=== PATIENT | male | born 1985 | race Caucasian/White ===

== ENCOUNTER → 2017-11-03 | Outpatient (CLI) | payer OTHER ==
[~2017-11-03] MED LIST: ALBUTEROL SULFAT8 MG; ALPRAZOLAM0.5 M1 PO; AMITRIPTYLINE25 MG PO; CARAFATE1 GM PO; CYCLOBENZAPRINE10 M1 PO; CYCLOBENZAPRINE10 MG PO; DEXTROAMPHETAMI10 M1; ETODOLAC400 MG PO; FLUOXETINE20 MG PO; INDERAL 10MG10 MG PO; KLONOPIN 1MG1 MG PO; METOCLOPRAMIDE10 M1 PO; NEURONTIN800 MG/TAB PO; NICOTINE; NORCO 325 MG-51 TAB PO; NORCO 325 MG-7.1 TAB PO; OMEPRAZOLE20 MG PO; PEPCID 20MG TAB20 MG PO; PHENERGAN 25 TA25 MG PO; PHENERGAN25 MG RC; PHENYTOIN100 MG PO; PRAZOSIN HCL2 MG PO; PRIL40; QUETIAPINE FUM200 MG PO; SEROQUEL 200MG200 MG PO; SUMATRIPTA6 MG/0.51 SC; TOPAMAX 100MG100 M1; TRAMADOL50 MG PO; ULTRAM50 MG PO
== END ==
LOC: COL.RAD 13:30
DX: M25.511 Pain in right shoulder (principal); S43.491A Other sprain of right shoulder joint, initial encounter; M25.811 Other specified joint disorders, right shoulder
CPT/HCPCS: A9585; Q9967

== ENCOUNTER 2019-03-07 18:56 | Emergency (ER) | payer OTHER ==
[~2019-03-07] VITALS: Ht 182.9 cm; Wt 86.4 kg
[2019-03-07 19:01] VITALS: BP 136/78; TEMP 98.4
[2019-03-07] MEDS ORDERED: NORCO 325 MG-51 TAB PO (19:31)
[2019-03-07 19:52] VITALS: PULSE 140
== END 2019-03-07 20:16 | disposition home or self-care (01) ==
LOC: COL.ER 18:56
DX: M25.511 Pain in right shoulder (principal); G89.29 Other chronic pain; F41.9 Anxiety disorder, unspecified; F43.10 Post-traumatic stress disorder, unspecified; F17.210 Nicotine dependence, cigarettes, uncomplicated; Z88.6 Allergy status to analgesic agent

== ENCOUNTER 2019-04-03 20:37 | Emergency (ER) | payer OTHER ==
[~2019-04-03] VITALS: Ht 182.9 cm; Wt 88.6 kg
[~2019-04-03 20:37] MED LIST changes: +MINIPRESS2 MG PO; -PRAZOSIN HCL2 MG PO
[2019-04-03 21:12] VITALS: TEMP 98.4
[2019-04-04] MEDS ORDERED: FLEXERIL 1010 MG/TAB PO (00:03)
[2019-04-04 00:31] VITALS: BP 130/67; PULSE 80
[2019-04-04] MEDS ORDERED: REMERON30 MG PO (02:54)
[2019-04-04] MEDS ORDERED: ADDERALL10 MG PO (02:57)
[2019-04-04] MEDS ORDERED: CHANTIX START M1 TAB PO (02:58)
== END 2019-04-04 00:33 | disposition home or self-care (01) ==
LOC: COL.ER 20:37
DX: M25.511 Pain in right shoulder (principal); F17.210 Nicotine dependence, cigarettes, uncomplicated; Z88.1 Allergy status to other antibiotic agents; Z88.8 Allergy status to other drugs, medicaments and biological substances

== ENCOUNTER 2019-04-04 02:38 | Emergency (ER) | payer OTHER ==
[~2019-04-04] VITALS: Ht 182.9 cm; Wt 88.6 kg
[~2019-04-04 02:38] MED LIST changes: +FLEXERIL 1010 MG/TAB PO
[2019-04-04 02:48] VITALS: TEMP 97.5
[2019-04-04] MEDS ORDERED: REMERON30 MG PO (02:54)
[2019-04-04] MEDS ORDERED: ADDERALL10 MG PO (02:57)
[2019-04-04] MEDS ORDERED: CHANTIX START M1 TAB PO (02:58)
[2019-04-04 04:29] LABS: HEMATOCRIT 40.8 % (42.0-52.0); HEMOGLOBIN 13.6 g/dl (13.5-18.0); MEAN CELL VOLUME 87 fl (80.0-100.0); MEAN CORPUSCULAR HEMOGLOBIN 29 pg (27.0-31.0); MEAN CORPUSCULAR HGB CONC 33 g/dl (33.0-37.0); PLATELET COUNT 193 K/mm3 (130-400); REDCELL DISTRIBUTION WIDTH-CV 13.1 % (11.5-14.5)
[2019-04-04 04:42] LABS: ALANINE AMINOTRANSFERASE 21 U/L (21-72); ALKALINE PHOSPHATASE 63 U/L (50-136); ANION GAP 7 mmol/L (7-16); AST,SGOT 23 U/L (15-37); BILIRUBIN,TOTAL 0.2 mg/dL (0.0-1.0); BLOOD UREA NITROGEN 24 mg/dL (9-20); CARBON DIOXIDE 24 mmol/L (22-30); CHLORIDE 111 mmol/L (98-107); CREATININE, serum 0.98 (0.66-1.25); GLUCOSE 96 mg/dL (74-106); POTASSIUM 3.9 mmol/L (3.4-5.0); SODIUM 142 mmol/L (137-145); TOTAL PROTEIN 6.7 gm/dL (6.4-8.2)
[2019-04-04 04:43] LABS: ACETAMINOPHEN < 10 ug/mL (10-30); ALCOHOL(ethanol),MEDICAL < 10 mg/dL; SALICYLATE < 1.0 mg/dL
[2019-04-04 04:52] LABS: TROPONIN-I < 0.012 ng/mL (0.000-0.035)
[2019-04-04 05:16] LABS: BAND 2 % (0-10); EOSINOPHIL 5 % (0-4); LYMPHOCYTE 60 % (20.0-51.0); NEUTROPHILS 29 % (42.0-75.2); PLATELET ESTIMATE NORMAL (NORMAL)
[2019-04-04 07:00] VITALS: BP 105/75; PULSE 64
== END 2019-04-04 07:25 | disposition home or self-care (01) ==
LOC: COL.ER 02:38
PROVIDERS: Emergency Medicine
DX: M25.511 Pain in right shoulder (principal); R40.0 Somnolence; F43.10 Post-traumatic stress disorder, unspecified; F17.210 Nicotine dependence, cigarettes, uncomplicated

== ENCOUNTER → 2019-05-02 | Outpatient (CLI) | payer OTHER ==
[~2019-05-02] MED LIST changes: +ADDERALL10 MG PO; +CHANTIX START M1 TAB PO; +REMERON30 MG PO
== END ==
LOC: COL.RAD 09:21
DX: S43.491A Other sprain of right shoulder joint, initial encounter (principal)
CPT/HCPCS: A9585; Q9967

== ENCOUNTER 2019-07-05 01:57 | Emergency (ER) | payer MEDICARE ==
[~2019-07-05] VITALS: Ht 182.9 cm; Wt 93.2 kg
[2019-07-05] MEDS ORDERED: IMITREX 25MG TA25 MG PO (02:04)
[2019-07-05 02:05] VITALS: BP 123/80; TEMP 98.4
[2019-07-05] MEDS ORDERED: ULTRAM 50MG TAB50 MG PO (02:05)
[2019-07-05 02:22] LABS: COLLECTION METHOD CLEAN CATCH
[2019-07-05 02:30] LABS: MUCOUS Present /lpf; PH 5 (5-8); SQUAMOUS EPITHELIAL 0-2 /hpf; URINE APPEARANCE Hazy; URINE BACTERIA Rare /hpf; URINE BILIRUBIN Negative (NEGATIVE); URINE BLOOD Negative (NEGATIVE); URINE COLOR Yellow; URINE GLUCOSE Negative (NEGATIVE); URINE KETONE Negative (NEGATIVE); URINE LEUKOCYTE ESTERASE Negative (NEGATIVE); URINE NITRATE Negative (NEGATIVE); URINE PROTEIN(semi-quant) Negative (NEGATIVE); URINE RBC 0-2 /hpf
[2019-07-05 02:34] LABS: TRICYCLIC ANTIDEPRESS URINE NEGATIVE
[2019-07-05 02:58] LABS: HEMATOCRIT 43.8 % (42.0-52.0); HEMOGLOBIN 14.5 g/dl (13.5-18.0); MEAN CELL VOLUME 86 fl (80.0-100.0); MEAN CORPUSCULAR HEMOGLOBIN 28 pg (27.0-31.0); MEAN CORPUSCULAR HGB CONC 33 g/dl (33.0-37.0); MEAN PLATELET VOLUME 10.3 fl (7.4-10.4); PLATELET COUNT 181 K/mm3 (130-400); RED BLOOD COUNT 5.12 M/mm3 (4.20-5.60); REDCELL DISTRIBUTION WIDTH-CV 12.9 % (11.5-14.5)
[2019-07-05 03:07] LABS: ALANINE AMINOTRANSFERASE 30 U/L (21-72); ALBUMIN 4.2 gm/dL (3.5-5.0); ALKALINE PHOSPHATASE 64 U/L (50-136); ANION GAP 9 mmol/L (7-16); AST,SGOT 19 U/L (15-37); BILIRUBIN,TOTAL 0.2 mg/dL (0.0-1.0); BLOOD UREA NITROGEN 21 mg/dL (9-20); CALCIUM 9.3 mg/dL (8.4-10.2); CARBON DIOXIDE 23 mmol/L (22-30); CHLORIDE 111 mmol/L (98-107); CREATININE, serum 0.99 (0.66-1.25); GLUCOSE 111 mg/dL (74-106); POTASSIUM 3.9 mmol/L (3.4-5.0); SODIUM 142 mmol/L (137-145); TOTAL PROTEIN 6.9 gm/dL (6.4-8.2)
[2019-07-05 03:12] LABS: BAND 7 % (0-10); EOSINOPHIL 2 % (0-4); LYMPHOCYTE 29 % (20.0-51.0); NEUTROPHILS 51 % (42.0-75.2); PLATELET ESTIMATE NORMAL (NORMAL)
[2019-07-05 03:13] LABS: ACETAMINOPHEN < 10 ug/mL (10-30); ALCOHOL(ethanol),MEDICAL < 10 mg/dL; SALICYLATE < 1.0 mg/dL
[2019-07-05 05:25] VITALS: PULSE 88
== END 2019-07-05 05:25 | disposition home or self-care (01) ==
LOC: COL.ER 01:57
PROVIDERS: Nurse Practitioner
DX: F32.9 Major depressive disorder, single episode, unspecified (principal); F43.10 Post-traumatic stress disorder, unspecified

== ENCOUNTER 2019-08-02 19:09 | Emergency (ER) | payer OTHER, MEDICARE ==
[~2019-08-02] VITALS: Ht 182.9 cm; Wt 84.1 kg
[~2019-08-02 19:09] MED LIST changes: +IMITREX 25MG TA25 MG PO; +ULTRAM 50MG TAB50 MG PO
[2019-08-02 20:47] LABS: BASO # 0.1 (0.0-0.2); BASO % 0.5 % (0.0-2.0); EOS # 0.4 (0.0-0.7); GRAN # 5.7 (1.4-6.5); GRAN % 46.4 % (42.2-75.2); HEMATOCRIT 44.6 % (42.0-52.0); HEMOGLOBIN 14.6 g/dl (13.5-18.0); LYMPH % 41.2 % (20.0-51.0); MEAN CELL VOLUME 88 fl (80.0-100.0); MEAN CORPUSCULAR HEMOGLOBIN 29 pg (27.0-31.0); MEAN CORPUSCULAR HGB CONC 33 g/dl (33.0-37.0); MEAN PLATELET VOLUME 10.3 fl (7.4-10.4); MONO % 8.5 % (1.7-9.3); PLATELET COUNT 212 K/mm3 (130-400); RED BLOOD COUNT 5.09 M/mm3 (4.20-5.60); REDCELL DISTRIBUTION WIDTH-CV 13.4 % (11.5-14.5)
[2019-08-02 21:00] LABS: ALBUMIN 4.2 gm/dL (3.5-5.0); BILIRUBIN,TOTAL 0.5 mg/dL (0.0-1.0); CALCIUM 9.1 mg/dL (8.4-10.2); CREATININE, serum 0.96 (0.66-1.25); POTASSIUM 4.1 mmol/L (3.4-5.0)
[2019-08-02 21:38] LABS: COLLECTION METHOD CLEAN CATCH
[2019-08-02 21:49] LABS: PH 7 (5-8); SQUAMOUS EPITHELIAL None Seen /hpf; URINE APPEARANCE Clear; URINE BACTERIA None Seen /hpf; URINE BILIRUBIN Negative (NEGATIVE); URINE BLOOD Negative (NEGATIVE); URINE COLOR Straw; URINE GLUCOSE Negative (NEGATIVE); URINE KETONE Negative (NEGATIVE); URINE LEUKOCYTE ESTERASE Negative (NEGATIVE); URINE NITRATE Negative (NEGATIVE); URINE PROTEIN(semi-quant) Negative (NEGATIVE); URINE RBC None Seen /hpf; URINE UROBILINOGEN Negative (NEGATIVE)
[2019-08-02] MEDS ORDERED: FLEXERIL 1010 MG/TAB PO (22:35)
[2019-08-02 22:45] VITALS: BP 129/72; PULSE 82; TEMP 98.2
== END 2019-08-02 22:55 | disposition home or self-care (01) ==
LOC: COL.ER 19:09
PROVIDERS: Nurse Practitioner
DX: S70.01XA Contusion of right hip, initial encounter (principal); S80.01XA Contusion of right knee, initial encounter; I10 Essential (primary) hypertension; F43.10 Post-traumatic stress disorder, unspecified; F17.210 Nicotine dependence, cigarettes, uncomplicated; V89.2XXA Person injured in unspecified motor-vehicle accident, traffic, initial encounter; R40.2412 Glasgow coma scale score 13-15, at arrival to emergency department
CPT/HCPCS: J1170; J7030

== ENCOUNTER 2019-08-26 23:44 | Emergency (ER) | payer MEDICARE ==
[~2019-08-26] VITALS: Ht 182.9 cm; Wt 88.6 kg
[2019-08-27] MEDS ORDERED: FLEXERIL 1010 MG/TAB PO (00:49)
[2019-08-27 00:50] VITALS: BP 132/76; PULSE 66; TEMP 97.9
== END 2019-08-27 01:00 | disposition home or self-care (01) ==
LOC: COL.ER 23:44
DX: S29.012A Strain of muscle and tendon of back wall of thorax, initial encounter (principal); F17.210 Nicotine dependence, cigarettes, uncomplicated; F43.10 Post-traumatic stress disorder, unspecified; X50.0XXA Overexertion from strenuous movement or load, initial encounter